=== PATIENT | male | born 1985 | race Caucasian/White ===

== ENCOUNTER 2021-09-24 11:55 | Emergency (ER) | payer BC ==
[2021-09-24 12:45] LABS: HEMOGLOBIN 16.2 gm/dl (14.0-17.5); RED BLOOD COUNT 5.31 M/UL (4.20-5.50); WHITE BLOOD COUNT 8.9 K/UL (4.5-11.0)
[2021-09-24 13:29] LABS: BUN/CREATININE RATIO 14 (0-10)
== END 2021-09-24 16:47 | disposition home or self-care (01) ==
LOC: ER1 11:55
PROVIDERS: Physician Assistant Medical
DX: R07.9 Chest pain, unspecified (principal); E87.6 Hypokalemia; K21.9 Gastro-esophageal reflux disease without esophagitis
CPT/HCPCS: 71046; 73030; 80053; 82550; 82553; 84484; 85025; 85379; 93005; 99285